=== PATIENT | male | born 1980 | race Caucasian/White ===

== ENCOUNTER 2017-06-22 12:39 | Inpatient (IN) | payer BC ==
[~2017-06-22] VITALS: Ht 175.3 cm; Wt 84.4 kg
[2017-06-22] MEDS ORDERED: SODIUM CHLORIDE 0.9% 1,000 ML IV ONE (14:34)
[2017-06-22] MEDS ORDERED: LORAZEPAM 2MG/ML CPJ IV ONE ×2 (14:45→19:00)
[2017-06-22 15:26] LABS: BASOPHILS % 0.6 % (0.0-2.0); HEMATOCRIT. 44.5 % (42.0-52.0); HEMOGLOBIN. 15.7 g/dL (14.0-18.0); LYMPHOCYTES % 15.8 % (20.0-50.0); MEAN CORPUSCULAR HEMOGLOBIN 31.9 pg (28.0-32.0); MEAN CORPUSCULAR VOLUME 90.1 fL (80.0-94.0); MEAN PLATELET VOLUME 8.5 fl (7.4-10.4); MONOCYTES % 6.6 % (2.0-8.0); PLATELET 184 x1000/uL (130-400); RED BLOOD CELL COUNT 4.94 mill/uL (4.7-6.1); RED CELL DISTRIBUTION WIDTH 13.7 % (11.6-14.6)
[2017-06-22 15:27] LABS: CARBON DIOXIDE 28 mEq/L (21-32); CHLORIDE 97 mEq/L (98-107)
[2017-06-22 15:28] LABS: AMMONIA 31 uMol/L (<32); INR 1.1; PROTHROMBIN TIME 11.8 sec (9.4-11.6)
[2017-06-22 15:33] LABS: CREATINE KINASE 777 IU/L (39-308); ETHANOL BLOOD 179 mg/dL
[2017-06-22 15:36] LABS: TROPONIN I 0.55 ng/mL (0.00-0.04)
[2017-06-22] MEDS ORDERED: POTASSIUM CHLORIDE 20MEQ TABLET SR PO NR (15:45)
[2017-06-22] MEDS ORDERED: SODIUM CHLORIDE 0.9% IV SCH (15:45)
[2017-06-22] MEDS ORDERED: SODIUM CHLORIDE 0.9% 1000ML BAG (SEPSIS BOLUS) IV ONE (15:45)
[2017-06-22] MEDS ORDERED: ASPIRIN 325MG TABLET PO ONE (16:00)
[2017-06-22] MEDS ORDERED: METOPROLOL TARTRATE 50MG TABLET PO ONE (16:45)
[2017-06-22 19:58] LABS: CLARITY URINE CLEAR (CLEAR); COLOR URINE YELLOW (YELLOW); GLUCOSE URINE 2+ (NEGATIVE); KETONES URINE 1+ (NEGATIVE); LEUKOCYTE ESTERASE URINE NEGATIVE (NEGATIVE); NITRITE URINE NEGATIVE (NEGATIVE); OCCULT BLOOD URINE NEGATIVE (NEGATIVE); PH URINE 6.5 (4.5-8.0); PROTEIN URINE 1+ (NEGATIVE); SPECIFIC GRAVITY URINE 1.016 (1.005-1.030)
[2017-06-22 20:08] LABS: *AMPHETAMINES SCREEN URINE NEGATIVE (NEGATIVE); *BARBITURATES SCREEN URINE NEGATIVE (NEGATIVE); *BENZODIAZEPINES SCREEN URINE NEGATIVE (NEGATIVE); *COCAINE SCREEN URINE NEGATIVE (NEGATIVE); CANNABINOID URINE SCREEN NEGATIVE (NEGATIVE); METHADONE URINE SCREEN NEGATIVE (NEGATIVE); OPIATES URINE SCREEN NEGATIVE (NEGATIVE); PHENCYCLIDINE URINE SCREEN NEGATIVE (NEGATIVE)
[2017-06-22] MEDS ORDERED: OXYMETAZOLINE HCL NASAL SPRAY 15ML BOTHNSTRLS STA (21:43)
[2017-06-22 23:00] VITALS: BP 171/119
[2017-06-22] MEDS ORDERED: ONDANSETRON HCL 4MG/2ML VIAL IV PRN (23:30)
[2017-06-22] MEDS ORDERED: CLONIDINE 0.1MG TABLET PO PRN (23:30)
[2017-06-22] MEDS ORDERED: DEXTROSE 50% WATER 50ML SYRINGE IV PRN (23:30)
[2017-06-22 23:38] VITALS: BP 171/119
[2017-06-22] MEDS: AMLODIPINE 10MG TABLET PO SCH (23:58)
[2017-06-22] MEDS: METOPROLOL TARTRATE 25MG TABLET PO SCH (23:58)
[2017-06-23] VITALS (9 sets, daily range): BP systolic 126–179; BP diastolic 86–129
[2017-06-23] MEDS ORDERED: MVI, ADULT NO.1 10 ML, FOLIC ACID 1 MG, THIAMINE HCL 100 MG in SODIUM CHLORIDE 0.9% 1,0... IV SCH ×4
[2017-06-23] MEDS: LORAZEPAM 2MG/ML CPJ IV PRN ×2 (00:49→23:35)
[2017-06-23] MEDS ORDERED: LORAZEPAM 2MG/ML CPJ ONE (00:51)
[2017-06-23 06:17] LABS: BASOPHILS % 0.6 % (0.0-2.0); EOSINOPHILS % 0.2 % (0.0-5.0); HEMATOCRIT. 40.9 % (42.0-52.0); HEMOGLOBIN. 14.2 g/dL (14.0-18.0); LYMPHOCYTES % 18.5 % (20.0-50.0); MEAN CORPUSCULAR HEMOGLOBIN 32.1 pg (28.0-32.0); MEAN CORPUSCULAR VOLUME 92.4 fL (80.0-94.0); NEUTROPHILS % 72.7 % (40.0-76.0); PLATELET 174 x1000/uL (130-400); RED BLOOD CELL COUNT 4.43 mill/uL (4.7-6.1); RED CELL DISTRIBUTION WIDTH 13.7 % (11.6-14.6)
[2017-06-23 06:39] LABS: CHLORIDE 99 mEq/L (98-107)
[2017-06-23 07:13] LABS: CARBON DIOXIDE 25 mEq/L (21-32); CREATINE KINASE 562 IU/L (39-308); CREATINE KINASE MB FRACTION 2.5 ng/mL (0.5-3.6); HDL CHOLESTEROL 93 mg/dL (40-59); LDL CHOLESTEROL 123 mg/dL (5-100); T4 FREE 1.01 ng/dL (0.76-1.46)
[2017-06-23 07:26] LABS: TROPONIN I 0.44 ng/mL (0.00-0.04)
[2017-06-23] MEDS: BLOOD SUGAR DIAGNOSTIC STRIP TEST SCH ×4 (07:29→21:10)
[2017-06-23] MEDS: METOPROLOL TARTRATE 25MG TABLET PO SCH ×2 (08:21→21:07)
[2017-06-23] MEDS: THIAMINE HCL 100MG TABLET PO SCH (08:21)
[2017-06-23] MEDS: AMLODIPINE 10MG TABLET PO SCH (08:22)
[2017-06-23] MEDS: INSULIN LISPRO 100 UNITS/ML SUBCUT SCH ×4 (08:25→21:34)
[2017-06-23] MEDS ORDERED: POTASSIUM CHLORIDE 20MEQ TABLET SR PO NR (12:30)
[2017-06-23] MEDS ORDERED: SODIUM CHLORIDE 0.9% 1,000 ML IV ONE (14:45)
[2017-06-23 16:11] LABS: CREATINE KINASE MB FRACTION 1.5 ng/mL (0.5-3.6); TROPONIN I 0.36 ng/mL (0.00-0.04)
[2017-06-24] VITALS: BP 123/77
[2017-06-24 04:00] VITALS: BP 124/83
[2017-06-24] MEDS: BLOOD SUGAR DIAGNOSTIC STRIP TEST SCH ×4 (05:58→22:21)
[2017-06-24 07:02] LABS: BASOPHILS % 0.4 % (0.0-2.0); EOSINOPHILS % 0.4 % (0.0-5.0); HEMATOCRIT. 31.3 % (42.0-52.0); HEMOGLOBIN. 10.9 g/dL (14.0-18.0); LYMPHOCYTES % 17.9 % (20.0-50.0); MEAN CORPUSCULAR HEMOGLOBIN 32.1 pg (28.0-32.0); NEUTROPHILS % 72.3 % (40.0-76.0); PLATELET 150 x1000/uL (130-400); RED BLOOD CELL COUNT 3.41 mill/uL (4.7-6.1); RED CELL DISTRIBUTION WIDTH 13.1 % (11.6-14.6)
[2017-06-24 07:56] LABS: CARBON DIOXIDE 28 mEq/L (21-32); CHLORIDE 100 mEq/L (98-107)
[2017-06-24 08:00] VITALS: BP 134/75
[2017-06-24] MEDS: THIAMINE HCL 100MG TABLET PO SCH (08:22)
[2017-06-24] MEDS: AMLODIPINE 10MG TABLET PO SCH (08:22)
[2017-06-24] MEDS: METOPROLOL TARTRATE 25MG TABLET PO SCH (08:23)
[2017-06-24] MEDS: INSULIN LISPRO 100 UNITS/ML SUBCUT SCH ×4 (08:25→22:40)
[2017-06-24] MEDS ORDERED: POTASSIUM CHLORIDE 20MEQ TABLET SR PO NR (11:00)
[2017-06-24 12:00] VITALS: BP 113/72
[2017-06-24] MEDS ORDERED: MAGNESIUM 1 G PREMIX 100 ML IV NR (12:00)
[2017-06-24 12:53] LABS: BASOPHILS % 0.3 % (0.0-2.0); EOSINOPHILS % 0.2 % (0.0-5.0); HEMATOCRIT. 29.9 % (42.0-52.0); HEMOGLOBIN. 10.5 g/dL (14.0-18.0); LYMPHOCYTES % 12.2 % (20.0-50.0); MEAN CORPUSCULAR VOLUME 91.1 fL (80.0-94.0); MEAN PLATELET VOLUME 8.5 fl (7.4-10.4); MONOCYTES % 6.4 % (2.0-8.0); NEUTROPHILS % 80.9 % (40.0-76.0); PLATELET 168 x1000/uL (130-400); RED BLOOD CELL COUNT 3.29 mill/uL (4.7-6.1); RED CELL DISTRIBUTION WIDTH 13.5 % (11.6-14.6)
[2017-06-24 13:06] LABS: CARBON DIOXIDE 29 mEq/L (21-32); CHLORIDE 97 mEq/L (98-107)
[2017-06-24] MEDS: SODIUM CHLORIDE 0.9% 1,000 ML IV SCH ×2 (13:29→22:18)
[2017-06-24] MEDS: CHLORDIAZEPOXIDE 5 MG CAPSULE PO SCH ×2 (13:32→22:17)
[2017-06-24] MEDS ORDERED: METOPROLOL TARTRATE 50MG TABLET PO SCH (14:26)
[2017-06-24 16:00] VITALS: BP 109/52
[2017-06-24 22:14] VITALS: BP 142/84
[2017-06-24] MEDS: METOPROLOL TARTRATE 50MG TABLET PO SCH (22:17)
[2017-06-24] MEDS: LORAZEPAM 2MG/ML CPJ IV PRN (22:36)
[2017-06-25 04:00] VITALS: BP 126/74
[2017-06-25] MEDS: CHLORDIAZEPOXIDE 5 MG CAPSULE PO SCH ×2 (07:03→18:18)
[2017-06-25] MEDS: BLOOD SUGAR DIAGNOSTIC STRIP TEST SCH ×4 (07:04→21:40)
[2017-06-25 07:54] LABS: BASOPHILS % 0.6 % (0.0-2.0); HEMATOCRIT. 26.1 % (42.0-52.0); HEMOGLOBIN. 9.3 g/dL (14.0-18.0); LYMPHOCYTES % 19.1 % (20.0-50.0); MEAN CORPUSCULAR HEMOGLOBIN 32.8 pg (28.0-32.0); MEAN CORPUSCULAR VOLUME 92.1 fL (80.0-94.0); MEAN PLATELET VOLUME 10.4 fl (7.4-10.4); MONOCYTES % 8.2 % (2.0-8.0); NEUTROPHILS % 71.1 % (40.0-76.0); PLATELET 110 x1000/uL (130-400); RED BLOOD CELL COUNT 2.83 mill/uL (4.7-6.1); RED CELL DISTRIBUTION WIDTH 13.3 % (11.6-14.6)
[2017-06-25 08:00] VITALS: BP 111/73
[2017-06-25 08:02] LABS: CARBON DIOXIDE 27 mEq/L (21-32); CHLORIDE 100 mEq/L (98-107)
[2017-06-25] MEDS: INSULIN LISPRO 100 UNITS/ML SUBCUT SCH ×4 (08:10→21:40)
[2017-06-25] MEDS ORDERED: MAGNESIUM 2 G PREMIX 50 ML IV NR (10:00)
[2017-06-25] MEDS: AMLODIPINE 10MG TABLET PO SCH (11:01)
[2017-06-25] MEDS: THIAMINE HCL 100MG TABLET PO SCH (11:01)
[2017-06-25] MEDS: METOPROLOL TARTRATE 50MG TABLET PO SCH ×2 (11:01→21:39)
[2017-06-25 12:00] VITALS: BP 98/64
[2017-06-25 18:00] VITALS: BP 104/65
[2017-06-25 20:00] VITALS: BP 106/61
[2017-06-26] VITALS: BP 111/71
[2017-06-26 04:00] VITALS: BP 105/62
[2017-06-26 06:13] LABS: BASOPHILS % 0.5 % (0.0-2.0); EOSINOPHILS % 0.6 % (0.0-5.0); HEMATOCRIT. 22.2 % (42.0-52.0); HEMOGLOBIN. 7.8 g/dL (14.0-18.0); LYMPHOCYTES % 26.8 % (20.0-50.0); MEAN CORPUSCULAR HEMOGLOBIN 32.4 pg (28.0-32.0); MEAN CORPUSCULAR VOLUME 92.2 fL (80.0-94.0); MEAN PLATELET VOLUME 8.6 fl (7.4-10.4); MONOCYTES % 9.9 % (2.0-8.0); NEUTROPHILS % 62.2 % (40.0-76.0); PLATELET 152 x1000/uL (130-400); RED BLOOD CELL COUNT 2.41 mill/uL (4.7-6.1); RED CELL DISTRIBUTION WIDTH 13.4 % (11.6-14.6)
[2017-06-26 06:37] LABS: CARBON DIOXIDE 30 mEq/L (21-32); CHLORIDE 101 mEq/L (98-107)
[2017-06-26] MEDS: BLOOD SUGAR DIAGNOSTIC STRIP TEST SCH ×2 (07:50→11:54)
[2017-06-26] MEDS: INSULIN LISPRO 100 UNITS/ML SUBCUT SCH ×2 (07:50→12:16)
[2017-06-26 08:00] VITALS: BP 106/62
[2017-06-26] MEDS: CHLORDIAZEPOXIDE 5 MG CAPSULE PO SCH (08:07)
[2017-06-26] MEDS: THIAMINE HCL 100MG TABLET PO SCH (08:07)
[2017-06-26] MEDS: AMLODIPINE 10MG TABLET PO SCH (08:09)
[2017-06-26] MEDS: METOPROLOL TARTRATE 50MG TABLET PO SCH (08:10)
[2017-06-26 12:00] VITALS: BP 109/68
[2017-06-26] MEDS ORDERED: POTASSIUM CHLORIDE 20MEQ TABLET SR PO NR (13:30)
[2017-06-26 15:07] VITALS: BP 109/68
== END 2017-06-26 18:34 | disposition home or self-care (01) | DRG 896 ==
LOC: ER 12:39 → 7WST 16:01 → ENRESERV 21:11
PROVIDERS: ADMIT Internal Medicine; ATTEND Internal Medicine
DX: F10.239 Alcohol dependence with withdrawal, unspecified (principal); I21.4 Non-ST elevation (NSTEMI) myocardial infarction; E11.65 Type 2 diabetes mellitus with hyperglycemia; E87.6 Hypokalemia; D64.9 Anemia, unspecified; E78.00 Pure hypercholesterolemia, unspecified; E78.5 Hyperlipidemia, unspecified; I10 Essential (primary) hypertension; R04.0 Epistaxis; Z80.0 Family history of malignant neoplasm of digestive organs; Z82.49 Family history of ischemic heart disease and other diseases of the circulatory system; Z91.14 Patient's other noncompliance with medication regimen
CPT/HCPCS: 30901; 36415; 70450; 71010; 80048; 80053; 80061; 80305; 81001; 82140; 82550; 82553; 82962; 83036; 83605; 83690; 83735; 84439; 84443; 84484; 85025; 85610; 85730; 86850; 86900; 87040; 87086; 93005; 93306; 96361; 96374; 96375; 99291; A6261; G0482; J1815; J2060; J3411; J3475; J3490; J7030; J7040

== ENCOUNTER 2017-08-18 00:39 | Inpatient (IN) | payer BC ==
[~2017-08-18] VITALS: Ht 175.3 cm; Wt 87.5 kg
[2017-08-18] MEDS ORDERED: SODIUM CHLORIDE 0.9% 1,000 ML IV ONE (02:34)
[2017-08-18] MEDS ORDERED: ASPIRIN 81MG TABLET PO ONE (02:45)
[2017-08-18 02:58] LABS: BASOPHILS % 0.8 % (0.0-2.0); EOSINOPHILS % 0.6 % (0.0-5.0); HEMATOCRIT. 37.1 % (42.0-52.0); HEMOGLOBIN. 12.7 g/dL (14.0-18.0); LYMPHOCYTES % 41.1 % (20.0-50.0); MEAN CORPUSCULAR HEMOGLOBIN 30.1 pg (28.0-32.0); MEAN CORPUSCULAR VOLUME 87.8 fL (80.0-94.0); MEAN PLATELET VOLUME 8.1 fl (7.4-10.4); MONOCYTES % 7.1 % (2.0-8.0); NEUTROPHILS % 50.4 % (40.0-76.0); PLATELET 233 x1000/uL (130-400); RED BLOOD CELL COUNT 4.22 mill/uL (4.7-6.1)
[2017-08-18 03:04] LABS: INR 1.1; PROTHROMBIN TIME 11.6 sec (9.4-11.6)
[2017-08-18 03:14] LABS: CARBON DIOXIDE 28 mEq/L (21-32); CHLORIDE 100 mEq/L (98-107); ETHANOL BLOOD 299 mg/dL; TROPONIN I 0.28 ng/mL (0.00-0.04)
[2017-08-18] MEDS ORDERED: POTASSIUM BICARB/CIT ACID 25 MEQ TABLET.EFF PO ONE (05:45)
[2017-08-18] MEDS ORDERED: KCL 20MEQ/100ML PREMIX 100 ML IV ONE (05:45)
[2017-08-18 07:31] LABS: *AMPHETAMINES SCREEN URINE NEGATIVE (NEGATIVE); *BARBITURATES SCREEN URINE NEGATIVE (NEGATIVE); *BENZODIAZEPINES SCREEN URINE NEGATIVE (NEGATIVE); *COCAINE SCREEN URINE NEGATIVE (NEGATIVE); CANNABINOID URINE SCREEN NEGATIVE (NEGATIVE); METHADONE URINE SCREEN NEGATIVE (NEGATIVE); OPIATES URINE SCREEN NEGATIVE (NEGATIVE); PHENCYCLIDINE URINE SCREEN NEGATIVE (NEGATIVE)
[2017-08-18 08:00] VITALS: BP 145/84
[2017-08-18 08:15] VITALS: BP 145/84
[2017-08-18] MEDS ORDERED: POTASSIUM CHLORIDE 20MEQ TABLET SR PO NR (09:00)
[2017-08-18] MEDS ORDERED: DEXTROSE 50% WATER 50ML SYRINGE IV PRN (09:00)
[2017-08-18] MEDS ORDERED: IPRATROPIUM/ALBUTEROL 0.5-3(2.5)MG/3ML NEB INH PRN (09:00)
[2017-08-18] MEDS ORDERED: HYDROCODONE/ACETAMINOPHEN 10/325MG TABLET PO PRN (09:00)
[2017-08-18] MEDS ORDERED: ONDANSETRON HCL 4MG/2ML VIAL IV PRN (09:00)
[2017-08-18] MEDS ORDERED: HYDROCODONE/ACETAMINOPHEN 5/325MG TABLET PO PRN (09:00)
[2017-08-18] MEDS ORDERED: DIPHENHYDRAMINE 50MG/ML VIAL IV PRN (09:00)
[2017-08-18] MEDS ORDERED: LORAZEPAM 2MG/ML CPJ IV PRN (09:00)
[2017-08-18] MEDS ORDERED: ACETAMINOPHEN 325MG TABLET PO PRN (09:00)
[2017-08-18 09:29] LABS: PHOSPHORUS 3.1 mg/dL (2.5-4.9)
[2017-08-18] MEDS ORDERED: METOPROLOL TARTRATE 25MG TABLET PO SCH (09:30)
[2017-08-18] MEDS ORDERED: LISINOPRIL 20MG TABLET PO SCH (09:30)
[2017-08-18] MEDS ORDERED: MVI, ADULT NO.1 10 ML, FOLIC ACID 1 MG, THIAMINE HCL 100 MG in SODIUM CHLORIDE 0.9% 1,0... IV NR ×4 (10:30)
[2017-08-18] MEDS ORDERED: BLOOD SUGAR DIAGNOSTIC STRIP TEST SCH (11:45)
[2017-08-18] MEDS ORDERED: INSULIN LISPRO 100 UNITS/ML SUBCUT SCH (12:15)
[2017-08-18] MEDS ORDERED: CHLORDIAZEPOXIDE 25MG CAPSULE PO SCH (14:00)
[2017-08-19 09:58] LABS: GLUCOSE URINE 2+ (NEGATIVE); KETONES URINE NEGATIVE (NEGATIVE); LEUKOCYTE ESTERASE URINE NEGATIVE (NEGATIVE); NITRITE URINE NEGATIVE (NEGATIVE); OCCULT BLOOD URINE NEGATIVE (NEGATIVE); PROTEIN URINE NEGATIVE (NEGATIVE); SPECIFIC GRAVITY URINE 1.008 (1.005-1.030); UROBILINOGEN URINE 0.2 E.U./dL (0.2-1.0)
[2017-08-19 10:01] LABS: CLARITY URINE CLEAR (CLEAR); COLOR URINE YELLOW (YELLOW)
== END 2017-08-18 11:10 | disposition left against medical advice (07) | DRG 313 ==
LOC: ER 00:39 → 5WST 05:39 → ENRESERV 06:49
PROVIDERS: ADMIT Internal Medicine; ATTEND Internal Medicine
DX: R07.89 Other chest pain (principal); E11.9 Type 2 diabetes mellitus without complications; E78.00 Pure hypercholesterolemia, unspecified; I10 Essential (primary) hypertension; I16.0 Hypertensive urgency; Z82.49 Family history of ischemic heart disease and other diseases of the circulatory system; F10.229 Alcohol dependence with intoxication, unspecified
CPT/HCPCS: 36415; 71010; 74176; 80053; 80305; 81001; 82962; 83605; 83690; 83735; 83880; 84100; 84484; 85025; 85610; 93005; 96361; 96365; 96366; 99291; G0482; J3411; J3480; J3490; J7030